=== PATIENT | male | born 1950 | race Hispanic/Latino ===

== ENCOUNTER → 2022-03-02 | Outpatient (CLI) | payer OTHER ==
[~2022-03-02] MED LIST: ATOR10 PO; IOHEXOL 350 MG/ML 100ML INFUS..BTL IV ONE; LISI10TA24 PO; METOPROLOL TARTRATE 1 MG/ML 5ML VIAL IV ONE
== END | disposition home or self-care (01) ==
LOC: RAH 08:37
PROVIDERS: ATTEND Student in an Organized Health Care Education/Training Program
DX: M47.815 Spondylosis without myelopathy or radiculopathy, thoracolumbar region (principal); I65.22 Occlusion and stenosis of left carotid artery
CPT/HCPCS: 75574; J3490; Q9967

== ENCOUNTER 2022-04-06 06:50 | Day surgery (SDC) | payer OTHER ==
[~2022-04-06] VITALS: Ht 175.3 cm; Wt 88.2 kg
[~2022-04-06 06:50] MED LIST changes: -IOHEXOL 350 MG/ML 100ML INFUS..BTL IV ONE; -METOPROLOL TARTRATE 1 MG/ML 5ML VIAL IV ONE
[2022-04-06 10:46] LABS: BASOPHILS % (AUTO) 0.2 % (0.0-5.0); EOSINOPHILS % (AUTO) 1.8 % (0.0-8.0); LYMPHOCYTES % (AUTO) 24.2 % (21.0-51.0); MEAN CORPUSCULAR HEMOGLOBIN 30.1 pg (27.0-33.0); MEAN CORPUSCULAR HGB CONC 33.9 g/dL (32.0-36.0); MEAN CORPUSCULAR VOLUME 88.9 fL (79-99); MONOCYTES % (AUTO) 5.9 % (3.0-13.0); NEUTROPHILS % (AUTO) 67.6 % (40.0-77.0); PLATELET COUNT (AUTO) 194 K/uL (130-400); RED BLOOD CELL COUNT(AUTO) 4.95 MIL/uL (4.50-6.20); RED CELL DISTRIBUTION WIDTH 13.5 % (11.0-15.5); WHITE BLOOD COUNT (AUTO) 6.7 K/uL (4.8-10.8)
[2022-04-06 10:54] LABS: INR 0.93 (0.85-1.15)
[2022-04-06 10:56] LABS: PARTIAL THROMBOPLASTIN TIME 28.3 SEC (26.3-35.5)
[2022-04-06 11:09] LABS: B-TYPE NATRIURETIC PEPTIDE 7 pg/mL (0-100)
[2022-04-06 11:35] VITALS: BP 137/74
[2022-04-06] MEDS ORDERED: LISI5TAB21 PO (11:55)
[2022-04-06] MEDS ORDERED: ATOR40TA71 PO (11:55)
[2022-04-06] MEDS ORDERED: AEC81 PO (11:55)
[2022-04-06] MEDS ORDERED: MULT-1367 PO (11:55)
[2022-04-06] MEDS ORDERED: CLOP75TA32 PO (11:55)
[2022-04-06] MEDS ORDERED: AMLO-258 PO (11:55)
[2022-04-06] MEDS ORDERED: VITAMIN B12 PO (11:55)
[2022-04-09] VITALS (11 sets, daily range): BP systolic 126–154; BP diastolic 69–83
[2022-04-09] MEDS ORDERED: 0.9%NACL 1000ML 1,000 ML IV ONE (07:23)
[2022-04-09] MEDS ORDERED: IOHEXOL 350 MG/ML 100ML INFUS..BTL IV ONE (09:05)
[2022-04-09] MEDS ORDERED: MIDAZOLAM HCL 1 MG/ML 2ML VIAL ONE ×2 (09:05→09:25)
[2022-04-09] MEDS ORDERED: HEPARIN 10,000 UNIT/10ML (1,000 UNIT/ML) VIAL ONE (09:05)
[2022-04-09] MEDS ORDERED: NITROGLYCERIN 50MG VIAL ONE (09:05)
[2022-04-09] MEDS ORDERED: IOHEXOL-350 50ML VIAL IV ONE (09:05)
[2022-04-09] MEDS ORDERED: LIDOCAINE HCL 400MG/20ML VIAL ONE (09:06)
[2022-04-09] MEDS ORDERED: VERAPAMIL HCL 2.5 MG/ML VIAL ONE (09:06)
[2022-04-09] MEDS ORDERED: FENTANYL CITRATE PF 50 MCG/1 ML 2ML VIAL ONE (09:06)
[2022-04-09 09:16] LABS: APPEARANCE,URINE CLEAR (CLEAR); BILIRUBIN,URINE NEGATIVE (NEGATIVE); COLOR,URINE COLORLESS (YELLOW); GLUCOSE, URINE (UA) NEGATIVE (NEGATIVE); KETONES,URINE NEGATIVE (NEGATIVE); LEUKOCYTE ESTERASE ,URINE NEGATIVE Leu/uL (NEGATIVE); NITRATE,URINE NEGATIVE (NEGATIVE); OCCULT BLOOD,URINE NEGATIVE (NEGATIVE); PH,URINE 7.5 (5.0-8.0); PROTEIN,URINE NEGATIVE (NEGATIVE); UROBILINOGEN,URINE 0.2 mg/dL (0.2-1.0)
[2022-04-09] MEDS ORDERED: 0.9%NACL 1000ML 1,000 ML IV SCH (10:30)
[2022-04-09] MEDS ORDERED: GLUCAGON 1MG KIT 1 MG ML IM PRN (10:30)
[2022-04-09] MEDS ORDERED: DEXTROSE 50%-WATER 50 ML DISP.SYRIN IV PRN (10:30)
== END 2022-04-09 16:15 | disposition home or self-care (01) ==
LOC: DAH 06:50
PROVIDERS: ATTEND Student in an Organized Health Care Education/Training Program
DX: I25.119 Atherosclerotic heart disease of native coronary artery with unspecified angina pectoris (principal); I25.82 Chronic total occlusion of coronary artery; I10 Essential (primary) hypertension; E78.5 Hyperlipidemia, unspecified; Z79.01 Long term (current) use of anticoagulants; Z79.899 Other long term (current) drug therapy; Z79.82 Long term (current) use of aspirin; Z88.6 Allergy status to analgesic agent
CPT/HCPCS: 80048; 83880; 85025; 85610; 85730; 81003; 36415; 71045; 93005; 93458; C1769 ×2; C1894; J3010; J3490 ×3; J7030; J1644 ×2; J2250 ×2; Q9967; A4215; A4222; A4221; A4663; A4216; A4606; Q9965; A4223 ×3; 96360; 96361; 99156; 99157

== ENCOUNTER → 2022-04-27 | Outpatient (CLI) | payer OTHER ==
[~2022-04-27] MED LIST changes: +AEC81 PO; +AMLO-258 PO; -ATOR10 PO; +ATOR40TA71 PO; +CLOP75TA32 PO; -LISI10TA24 PO; +LISI5TAB21 PO; +MECL-160 PO; +MULT-1367 PO; +VIT B12 PO; +VITAMIN B12 PO
== END | disposition home or self-care (01) ==
LOC: RAH 12:47
PROVIDERS: ATTEND Student in an Organized Health Care Education/Training Program
DX: I35.0 Nonrheumatic aortic (valve) stenosis (principal); I11.9 Hypertensive heart disease without heart failure; I25.10 Atherosclerotic heart disease of native coronary artery without angina pectoris; E11.9 Type 2 diabetes mellitus without complications; E78.5 Hyperlipidemia, unspecified; Z86.73 Personal history of transient ischemic attack (TIA), and cerebral infarction without residual deficits
CPT/HCPCS: 93306

== ENCOUNTER → 2023-09-05 | Outpatient (CLI) | payer OTHER ==
[~2023-09-05] MED LIST changes: -AMLO-258 PO; +FAMO20TA8 PO; +FURO20TA6 PO; -LISI5TAB21 PO; -MECL-160 PO; +MECL-302 PO; +METO25TA3 PO; -VITAMIN B12 PO
[2023-09-05 12:37] LABS: HEMOGLOBIN A1C 6.1 % (4.0-6.0)
[2023-09-05 12:40] LABS: CHOLESTEROL 125 mg/dL (<200); HDL CHOLESTEROL 48 mg/dL (29-71); LDL DIRECT 62 mg/dL (0-99); TRIGLYCERIDES 135 mg/dL (30-200)
== END | disposition home or self-care (01) ==
LOC: LAB 10:05
PROVIDERS: ATTEND Student in an Organized Health Care Education/Training Program
DX: I10 Essential (primary) hypertension (principal); E78.5 Hyperlipidemia, unspecified; E11.9 Type 2 diabetes mellitus without complications
CPT/HCPCS: 36415; 80061; 83036

== ENCOUNTER → 2023-12-09 | Outpatient (CLI) | payer OTHER ==
[2023-12-09 12:12] LABS: HEMOGLOBIN A1C 5.8 % (4.0-6.0)
[2023-12-09 12:31] LABS: CHOLESTEROL 121 mg/dL (<200); HDL CHOLESTEROL 55 mg/dL (29-71); LDL DIRECT 58 mg/dL (0-99); TRIGLYCERIDES 102 mg/dL (30-200)
== END | disposition home or self-care (01) ==
LOC: LAB 10:15
PROVIDERS: ATTEND Student in an Organized Health Care Education/Training Program
DX: I10 Essential (primary) hypertension (principal); E78.5 Hyperlipidemia, unspecified; Z79.899 Other long term (current) drug therapy
CPT/HCPCS: 36415; 80061; 83036

== ENCOUNTER → 2024-06-12 | Outpatient (CLI) | payer OTHER ==
[2024-06-12 15:49] LABS: HEMOGLOBIN A1C 5.9 % (4.0-6.0)
[2024-06-12 15:57] LABS: ALBUMIN 4.1 g/dL (3.5-5.0); BILIRUBIN,TOTAL 0.6 mg/dL (0.2-1.0); CREATININE 0.9 mg/dL (0.5-1.3); TOTAL PROTEIN, SERUM 7.5 g/dL (6.0-8.3)
[2024-06-12 16:10] LABS: POTASSIUM 3.9 mmol/L (3.5-5.1)
== END | disposition home or self-care (01) ==
LOC: LAB 13:11
PROVIDERS: ATTEND Student in an Organized Health Care Education/Training Program
DX: I25.10 Atherosclerotic heart disease of native coronary artery without angina pectoris (principal); E78.5 Hyperlipidemia, unspecified; Z79.899 Other long term (current) drug therapy
CPT/HCPCS: 36415; 80053; 80061; 83036